=== PATIENT | male | born 1965 ===

== ENCOUNTER 2024-08-18 01:15 | Emergency (ER) | payer OTHER ==
[2024-08-18] MEDS: Metoprolol Tartrate 5 MG/5 ML SDV IVPUSH ONE ×2 (01:34→01:45)
[2024-08-18] MEDS ORDERED: Sodium Chloride 0.9% 10 ML Syringe FLUSH PRN (01:36)
[2024-08-18 01:45] LABS: BASOPHILS PERCENT AUTO 0.4 % (0.2-1.2); EOSINOPHILS ABSOLUTE AUTO 0.5 x10^3/uL (0.0-0.5); EOSINOPHILS PERCENT AUTO 6.4 % (0.0-4.0); HEMATOCRIT 45.6 % (40.0-52.0); HEMOGLOBIN 16.4 g/dL (14.0-18.0); IMMATURE GRAN ABSOLUTE AUTO 0.01 x10^3/uL (0.00-0.07); LYMPHOCYTES ABSOLUTE AUTO 2.6 x10^3/uL (1.0-4.8); LYMPHOCYTES PERCENT AUTO 30.7 % (25.0-50.0); MEAN CORPUSCULAR VOLUME 83.4 fL (78.0-93.0); MONOCYTES ABSOLUTE AUTO 0.7 x10^3/uL (0.0-0.8); NEUTROPHILS ABSOLUTE AUTO 4.5 x10^3/uL (1.8-7.7); NEUTROPHILS PERCENT AUTO 54.4 % (50.0-80.0); PLATELET COUNT,PLT 206 x10^3/uL (130-400); RED BLOOD CELL COUNT 5.47 x10^6/uL (4.5-6.0); WHITE BLOOD CELL COUNT,WBC 8.3 x10^3/uL (4.0-10.0)
[2024-08-18] MEDS: Sodium Chloride 0.9% 1,000 ML IV ONE (01:45)
[2024-08-18 01:59] LABS: A/G RATIO 0.97; ALANINE AMINOTRANSFERASE,ALT 37 U/L (16-63); ALBUMIN 3.5 g/dL (3.4-5.0); ALKALINE PHOSPHATASE 94 U/L (46-116); BILIRUBIN TOTAL 0.3 mg/dL (0.2-1.0); BLOOD UREA NITROGEN,BUN 13 mg/dL (7-18); CALCIUM 8.4 mg/dL (8.5-10.1); CARBON DIOXIDE,CO2 26 mmol/L (21-32); CHLORIDE,CL 102 mmol/L (98-107); CREATININE 1.2 mg/dL (0.70-1.30); GLUCOSE RANDOM 199 mg/dL (70-99); POTASSIUM,K 3.4 mmol/L (3.5-5.1); PROTEIN TOTAL,TP 7.1 g/dL (6.4-8.2); SODIUM,NA 140 mmol/L (136-145)
[2024-08-18] MEDS: Diltiazem 50 MG/10 ML SDV IVPUSH ONE (01:59)
[2024-08-18 02:01] LABS: ANION GAP 15.4 mmol/L (5-15); ESTIMATED GFR 71 mL/min (>=60)
[2024-08-18] MEDS: Potassium Chloride 20 MEQ Tab.ER PO ONE (02:13)
[2024-08-18 02:24] LABS: ASPARTATE AMNIOTRANSFERASE,AST 17 U/L (15-37)
== END 2024-08-18 02:50 | disposition home or self-care (01) ==
LOC: VM.ED 01:15
DX: I48.91 Unspecified atrial fibrillation (principal); Z79.899 Other long term (current) drug therapy
CPT/HCPCS: 80053; 83735; 84484; 85025; 93005; 93010; 96374; 96375; 99284; 99285-25; A9270-GY; J3490; J7030